=== PATIENT | male | born 1985 | race Caucasian/White ===

== ENCOUNTER 2016-03-31 14:06 | Emergency (ER) | payer OTHER ==
[~2016-03-31] VITALS: Ht 177.8 cm; Wt 117.7 kg
[2016-03-31 14:50] LABS: HEMATOCRIT 40.4 % (38.0-50.0); MCH 28.7 PG (29.0-34.0); MCHC 35.4 G/DL (30.0-36.0); MCV 81.1 FL (86-99); MEAN PLAT.VOLUME 9.6 uM^3 (9.0-12.4); PLATELET COUNT 322 K/uL (156-360); RBC DIS.WIDTH-CV 12.5 % (11.8-14.6); RBC DIS.WIDTH-SD 36.1 % (39-53); RED BLOOD COUNT 4.98 M/uL (4.00-5.50); WHITE BLOOD COUNT 7.7 K/uL (4.1-10.2)
[2016-03-31 14:58] LABS: CHLORIDE 105 mEq/L (99-109); POTASSIUM 3.9 mEq/L (3.7-5.4); SODIUM 137 mEq/L (136-147)
[2016-03-31 15:00] LABS: GLUCOSE 100 mg/dL (70-99)
[2016-03-31 15:02] LABS: ANION GAP 12 MEQ/L (2-14)
[2016-03-31 15:04] LABS: GFR ESTIMATE (CALCULATED) > 59 mL/min/
[2016-03-31 15:05] LABS: UREA NITROGEN (BUN) 14 mg/dL (9-23)
[2016-03-31 15:55] VITALS: BP 126/60
== END 2016-03-31 16:14 | disposition home or self-care (01) ==
LOC: EME 14:06
PROVIDERS: Emergency Medicine
DX: R55 Syncope and collapse (principal); R42 Dizziness and giddiness; R11.0 Nausea; R53.1 Weakness
CPT/HCPCS: 80048; 85027; 93005; 99281; 99284

== ENCOUNTER 2017-09-24 17:41 | Emergency (ER) | payer OTHER ==
[~2017-09-24] VITALS: Ht 177.8 cm; Wt 114.3 kg
[2017-09-24 18:22] LABS: BASOPHIL (%) 0.7 % (0-1); BASOPHIL COUNT 0.1 K/uL (0-0.1); EOSINOPHIL (%) 1.8 % (0-5); EOSINOPHIL COUNT 0.2 K/uL (0-0.3); HEMOGLOBIN 14.2 G/DL (12.5-16.6); IMMATURE GRANULOCYTE (%) 0.2 % (0.0-0.7); LYMPHOCYTE (%) 23.7 % (15-42); LYMPHOCYTE COUNT 2.3 K/uL (1.0-2.8); MCH 28.8 PG (29.0-34.0); MCHC 34.6 G/DL (30.0-36.0); MCV 83.2 FL (86-99); MONOCYTE (%) 8.7 % (3-12); MONOCYTE COUNT 0.8 K/uL (0-0.8); NEUTROPHIL (%) 64.9 % (45-76); NEUTROPHIL COUNT 6.2 K/uL (1.8-6.4); PLATELET COUNT 319 K/uL (156-360); RBC DIS.WIDTH-CV 12.3 % (11.8-14.6); RBC DIS.WIDTH-SD 37.2 % (39-53); RED BLOOD COUNT 4.93 M/uL (4.00-5.50); WHITE BLOOD COUNT 9.6 K/uL (4.1-10.2)
[2017-09-24 18:31] LABS: ALBUMIN 4.7 g/dL (3.2-4.8); CHLORIDE 108 mEq/L (99-109); POTASSIUM 3.9 mEq/L (3.7-5.4); SODIUM 141 mEq/L (136-147)
[2017-09-24 18:33] LABS: D-DIMER ELISA < 150.00 ng/mLDDU (<230)
[2017-09-24 18:33] LABS: GLUCOSE 108 mg/dL (70-99)
[2017-09-24 18:34] LABS: TOTAL PROTEIN 7.7 g/dL (6.4-8.3)
[2017-09-24 18:35] LABS: TOTAL BILIRUBIN 0.3 mg/dL (0.0-1.0)
[2017-09-24 18:37] LABS: ALKALINE PHOSPHATASE 62 IU/L (3-129); CREATININE 1.1 mg/dL (0.6-1.3); GFR ESTIMATE (CALCULATED) > 59 mL/min/ (58.99-99999)
[2017-09-24 18:38] LABS: UREA NITROGEN (BUN) 24 mg/dL (9-23)
[2017-09-24 18:39] LABS: AST (GOT) 35 IU/L (2-34)
[2017-09-24 18:40] LABS: ALT (GPT) 67 IU/L (3-49); LIPASE 35 U/L (1.0-51.0)
[2017-09-24 18:43] LABS: APPEARANCE CLEAR ((CLEAR)); BILIRUBIN NEGATIVE; BLOOD NEGATIVE; COLOR YELLOW ((YELLOW)); GLUCOSE (STRIP) NEGATIVE; KETONES NEGATIVE; LEUKOCYTES NEGATIVE; NITRITE NEGATIVE; PROTEIN (STRIP) NEGATIVE; SPECIFIC GRAVITY 1.021 (1.000-1.030); UCUL ADDED? NO; UROBILINOGEN 0.2 MG/DL (0.2-1.0)
[2017-09-24 18:43] LABS: TROP-I INTERPRETATION NEGATIVE; TROPONIN-I < 0.01 ng/mL (0.0-0.30)
[2017-09-24 20:53] LABS: TROP-I INTERPRETATION NEGATIVE; TROPONIN-I 0.01 ng/mL (0.0-0.30)
[2017-09-24 21:35] VITALS: BP 140/86
== END 2017-09-24 21:37 | disposition home or self-care (01) ==
LOC: EME 17:41
PROVIDERS: Emergency Medicine
DX: R07.9 Chest pain, unspecified (principal); R42 Dizziness and giddiness; Z87.820 Personal history of traumatic brain injury; R06.02 Shortness of breath; R11.0 Nausea; R20.2 Paresthesia of skin
CPT/HCPCS: 70450; 71046; 80053; 81003; 83690; 84484; 85025; 85379; 93005; 99281; 99284; J7030